=== PATIENT | female | born 1940 | race Caucasian/White ===

== ENCOUNTER 2017-11-09 19:47 | Emergency (ER) | payer MEDICARE, OTHER ==
[~2017-11-09] VITALS: Ht 154.9 cm; Wt 79.2 kg
[~2017-11-09 19:47] MED LIST: ALPR.5 PO; BELL1TAB PO; FURO1TAB62 PO; GAVICHW CHEW; MECL-62 PO; SUCR1TAB PO
[2017-11-09 19:59] VITALS: BP 151/85; PULSE 93; RESP 20; TEMP 98.2; O2SAT 99
[2017-11-09 23:33] VITALS: BP 165/83; PULSE 61; RESP 20; O2SAT 97
[2017-11-10 00:33] VITALS: BP 175/85; PULSE 72; RESP 18; O2SAT 96
[2017-11-10] MEDS ORDERED: PRED50 PO (00:44)
[2017-11-10] MEDS ORDERED: methylPREDNISolone SOD SUCC 125 MG/2 ML VIAL IV PUSH ONE (00:45)
[2017-11-10] MEDS ORDERED: FUROSEMIDE 40 MG/4 ML VIAL IV PUSH ONE (00:45)
--- NOTE | 2017-11-10 00:45 | PD ---
HPI Chief Complaint: Respiratory Symptoms Time Seen by Provider: 22:01 Travel History International Travel<30 days: No Contact w/Intl Traveler<30days: No Traveled to known affect area: No History of Present Illness HPI The patient is a 76-year-old female who has a history of emphysema and congestive heart failure. She states she is unable to take the prednisone that was prescribed to her because it is too many pills and she has gastroesophageal irritation from these pills. She states she can take 1 pill without any problem. She also states her congestive heart failure is acting up because she has swelling in her legs. She takes 20 mg of Lasix daily for this. She no longer smokes. She denies any fever or chest pain. She states she has decreased exercise tolerance for the past week. She denies any fever and has a minimal cough. PFSH Past Medical History Cardiovascular Problems: Yes (A-FIB) COPD: Yes (spot on lung non cancerous) Diminished Hearing: No Gastrointestinal Disorders: Yes (GASTROPERESIS) GERD: Yes Hiatal Hernia: Yes Hypertension: Yes Respiratory: Yes (EMPHYSEMA) Tetanus Vaccination: > 5 Years Influenza Vaccination: No ?: Not : 2 Para: 2 Past Surgical History Cholecystectomy: Yes Ear Surgery: Yes (cataract sx) Gynecologic Surgery: Yes (oophorecctomy) Other Surgery: Yes (angiogram) Social History Alcohol Use: Yes (occasional) Tobacco Use: No (QUIT 2009) Substance Use: No Allergies-Medications (Allergen,Severity, Reaction): Coded Allergies: Penicillins (Verified Allergy, Severe, Anaphylaxis, 11/09/17) latex (Verified Allergy, Unknown, rash, 11/09/17) Uncoded Allergies: cough medicine (Allergy, Severe, 08/27/17) palpations Reported Meds & Prescriptions Reported Meds & Active Scripts Active Meclizine (Meclizine HCl) 25 Mg Tab 25 Mg PO TID PRN Reported Gaviscon (Aluminum Hydroxide-Mag Trisil) 80-14.2 mg Chew 2 Tab CHEW TID PRN Maximum 16 tabs/24 hrs Xanax (Alprazolam) 0.5 Mg Tab 0.5 Mg PO DAILY Lasix (Furosemide) 20 Mg Tab 20 Mg PO DAILY Review of Systems Except as stated in HPI: all other systems reviewed are Neg Physical Exam Narrative GENERAL: The patient is alert, oriented 3 in no respiratory distress. Her vital signs show blood pressure 151/85 and oximetry 99% on room air. Heart rate is 93 and temperature 98.2. Respirations are 20. SKIN: Focused skin assessment warm/dry. No skin rash is noted. HEAD: Atraumatic. Normocephalic. EYES: Pupils equal and round. No scleral icterus. No injection or drainage. ENT: No nasal bleeding or discharge. Mucous membranes pink and moist. NECK: Trachea midline. No JVD. No neck vein distention is present. CARDIOVASCULAR: Regular rate and rhythm. No murmur appreciated. RESPIRATORY: No accessory muscle use. Clear to auscultation. Breath sounds equal bilaterally. Specifically, no wheezes or Rales are heard. GASTROINTESTINAL: Abdomen soft, non-tender, nondistended. Hepatic and splenic margins not palpable. MUSCULOSKELETAL: No obvious deformities. No clubbing. No cyanosis. +2 bilateral edema. NEUROLOGICAL: Awake and alert. No obvious cranial nerve deficits. Motor grossly within normal limits. Normal speech. PSYCHIATRIC: Appropriate mood and affect; insight and judgment normal. Data Data Last Documented VS Vital Signs Date Time Temp Pulse Resp B/P (MAP) Pulse Ox O2 Delivery O2 Flow Rate FiO2 11/09/17 23:33 61 20 99 Room Air 11/09/17 23:33 165/83 (110) 11/09/17 19:59 98.2 MDM Medical Decision Making Medical Screen Exam Complete: Yes Emergency Medical Condition: Yes Medical Record Reviewed: Yes Differential Diagnosis Congestive heart failure, emphysema, pneumonia-unlikely, bronchitis, Narrative Course The patient may have slight congestive heart failure. Her history is that when she has leg swelling it is her congestive heart failure causing the problems. Her lungs are completely clear. Diagnosis Primary Impression: Congestive heart failure Additional Impression: Emphysema lung Med/Other Pt SpecificInfo: Prescription(s) given Scripts Prednisone (Prednisone) 50 Mg Tab 50 MG PO DAILY for 5 Days, #5 TAB 0 Refills Prov: Tim Hong MD 11/10/17 Disposition: 01 DISCHARGE HOME Condition: Stable Tim Hong MD Nov 10, 2017 00:45
[2017-11-10 01:57] VITALS: BP 155/99
== END 2017-11-10 02:02 | disposition home or self-care (01) ==
LOC: PHED 19:47
DX: I50.9 Heart failure, unspecified (principal); J43.8 Other emphysema; I10 Essential (primary) hypertension; Z86.79 Personal history of other diseases of the circulatory system; Z87.19 Personal history of other diseases of the digestive system
CPT/HCPCS: 96374; 96375; 99284; J1940; J2930

== ENCOUNTER 2018-01-21 17:52 | Emergency (ER) | payer MEDICARE, OTHER ==
[~2018-01-21] VITALS: Ht 154.9 cm; Wt 81.0 kg
[~2018-01-21 17:52] MED LIST changes: -BELL1TAB PO; +PRED50 PO
[2018-01-21 18:14] VITALS: BP 150/85; PULSE 86; RESP 16; TEMP 97.9; O2SAT 96
[2018-01-21] MEDS ORDERED: ZPAK (20:50)
[2018-01-21 21:10] LABS: BILIRUBIN, URINE NEG (NEG); BLOOD, URINE NEG (NEG); GLUCOSE,URINE NEG (NEG); KETONE, URINE NEG (NEG); NITRITE,URINE NEG (NEG); URINE COLOR YELLOW (YELLW/STRAW); URINE LEUKOCYTE ESTERASE NEG (NEG)
[2018-01-21 21:20] LABS: CHLORIDE 105 MEQ/L (98-107); SODIUM (NA) 137 MEQ/L (136-145)
[2018-01-21 21:21] LABS: AUTOMATED NEUTROPHIL # 5.1 TH/MM3 (1.8-7.7); BASOPHIL # 0.1 TH/MM3 (0-0.2); BASOPHIL % 0.7 % (0.0-2.0); EOSINOPHIL # 0.1 TH/MM3 (0-0.4); EOSINOPHIL % 1.1 % (0.0-4.0); HEMATOCRIT 38.9 % (35.0-46.0); HEMOGLOBIN 13.3 GM/DL (11.6-15.3); LYMPH % 28.4 % (9.0-44.0); LYMPHOCYTE # 2.3 TH/MM3 (1.0-4.8); MEAN CELL VOLUME 90.5 FL (80.0-100.0); MEAN CORPUSCULAR HEMOGLOBIN 30.9 PG (27.0-34.0); MEAN CORPUSCULAR HGB CONC 34.1 % (32.0-36.0); MEAN PLATELET VOLUME 8.5 FL (7.0-11.0); MONO % 6.7 % (0.0-8.0); MONOCYTE # 0.6 TH/MM3 (0-0.9); NEUT % 63.1 % (16.0-70.0); PLATELET COUNT 187 TH/MM3 (150-450); RED CELL DISTRIBUTION WIDTH 11.7 % (11.6-17.2); WHITE BLOOD COUNT 8.2 TH/MM3 (4.0-11.0)
[2018-01-21 21:24] LABS: ALBUMIN 4.4 GM/DL (3.4-5.0); BICARBONATE 27.8 MEQ/L (21.0-32.0); CALCIUM 9.5 MG/DL (8.5-10.1); GLUCOSE,RANDOM 96 MG/DL (74-106)
[2018-01-21 21:25] LABS: BLOOD UREA NITROGEN 26 MG/DL (7-18); SQUAMOUS EPITHELIAL CELL URINE 0-5 /hpf (0-5)
[2018-01-21 21:27] LABS: ALT (GPT) 32 U/L (10-53); AST (GOT) 25 U/L (15-37)
[2018-01-21 21:28] LABS: GLOMERULAR FILTRATION RATE 40 ML/MIN (>89)
[2018-01-21 21:29] LABS: TOTAL BILIRUBIN ADULT 0.6 MG/DL (0.2-1.0); TOTAL PROTEIN 8.2 GM/DL (6.4-8.2)
[2018-01-21 21:30] LABS: ALKALINE PHOSPHATASE 104 U/L (45-117)
--- NOTE | 2018-01-21 21:39 | PD ---
HPI Chief Complaint: Pain: Acute or Chronic Time Seen by Provider: 20:50 Travel History International Travel<30 days: No Contact w/Intl Traveler<30days: No Traveled to known affect area: No History of Present Illness HPI 77-year-old female that presents to the ED for evaluation of muscle spasms to her hands and feet. Per patient she's had this since today. Per patient she no longer has this but she has a pain to her back that appears to be more constant per per patient is not severe and is 3 out of 10. Per patient he muscle spasm versus beer and then went away on her own. She denies any urinary or bowel movement issues. She denies any headache. No chest pain or shortness of breath. She does state that she gets spasms as well as pain whenever she gets dehydrated that she takes Lasix. She doesn't take any potassium way. Denies any falls or injuries. States that this off for some she's had pain this bad. Per patient the pain is 7 out of 10. Sharp. She no longer has it. Allergies to different medications. PFSH Past Medical History Hx Anticoagulant Therapy: No Cardiovascular Problems: Yes (CHOL, CHF, HTN) COPD: Yes (spot on lung non cancerous) Diabetes: No Diminished Hearing: No Gastrointestinal Disorders: Yes (GASTROPERESIS) GERD: Yes Hiatal Hernia: Yes Hypertension: Yes Respiratory: Yes (EMPHYSEMA) ?: Not : 2 Para: 2 Past Surgical History Cholecystectomy: Yes Ear Surgery: Yes (cataract sx) Gynecologic Surgery: Yes (oophorecctomy) Other Surgery: Yes (angiogram) Social History Alcohol Use: Yes (occasional) Tobacco Use: No (QUIT 2009) Substance Use: No Allergies-Medications (Allergen,Severity, Reaction): Coded Allergies: Penicillins (Verified Allergy, Severe, Anaphylaxis, 01/21/18) latex (Verified Allergy, Unknown, rash, 01/21/18) Uncoded Allergies: cough medicine (Allergy, Severe, 08/27/17) palpations Reported Meds & Prescriptions Reported Meds & Active Scripts Active Meclizine (Meclizine HCl) 25 Mg Tab 25 Mg PO TID PRN Reported [Zpak] Xanax (Alprazolam) 0.5 Mg Tab 0.5 Mg PO DAILY Lasix (Furosemide) 20 Mg Tab 20 Mg PO DAILY Review of Systems Except as stated in HPI: all other systems reviewed are Neg Physical Exam Narrative GENERAL: SKIN: Warm and dry. HEAD: Atraumatic. Normocephalic. EYES: Pupils equal and round. No scleral icterus. No injection or drainage. ENT: No nasal bleeding or discharge. Mucous membranes pink and moist. NECK: Trachea midline. No JVD. CARDIOVASCULAR: Regular rate and rhythm. No murmurs, S3, S4. RESPIRATORY: No accessory muscle use. Clear to auscultation. Breath sounds equal bilaterally. GASTROINTESTINAL: Abdomen soft, non-tender, nondistended. Hepatic and splenic margins not palpable. MUSCULOSKELETAL: Extremities without clubbing, cyanosis, or edema. No obvious deformities. Full range of motion of the upper and lower extremities bilaterally. 2+ pulses bilaterally. No lumbar, thoracic, cervical spine tenderness to palpation. Patient doesn't really have reproducible pain on the CVA area. NEUROLOGICAL: Awake and alert. No obvious cranial nerve deficits. Motor grossly within normal limits. Five out of 5 muscle strength in the arms and legs. Normal speech. PSYCHIATRIC: Appropriate mood and affect; insight and judgment normal. Data Data Last Documented VS Vital Signs Date Time Temp Pulse Resp B/P (MAP) Pulse Ox O2 Delivery O2 Flow Rate FiO2 01/21/18 18:14 97.9 86 16 150/85 (106) 96 Orders Orders Complete Blood Count With Diff (01/21/18 20:56) Comprehensive Metabolic Panel (01/21/18 20:56) Lipase (01/21/18 20:56) Urinalysis - C+S If Indicated (01/21/18 20:56) Iv Access Insert/Monitor (01/21/18 20:56) Sodium Chlor 0.9% 1000 Ml Inj (Ns 1000 M (01/21/18 22:00) Ed Discharge Order (01/21/18 21:57) Labs Laboratory Tests Test 01/21/18 21:01 White Blood Count 8.2 TH/MM3 Red Blood Count 4.30 MIL/MM3 Hemoglobin 13.3 GM/DL Hematocrit 38.9 % Mean Corpuscular Volume 90.5 FL Mean Corpuscular Hemoglobin 30.9 PG Mean Corpuscular Hemoglobin Concent 34.1 % Red Cell Distribution Width 11.7 % Platelet Count 187 TH/MM3 Mean Platelet Volume 8.5 FL Neutrophils (%) (Auto) 63.1 % Lymphocytes (%) (Auto) 28.4 % Monocytes (%) (Auto) 6.7 % Eosinophils (%) (Auto) 1.1 % Basophils (%) (Auto) 0.7 % Neutrophils # (Auto) 5.1 TH/MM3 Lymphocytes # (Auto) 2.3 TH/MM3 Monocytes # (Auto) 0.6 TH/MM3 Eosinophils # (Auto) 0.1 TH/MM3 Basophils # (Auto) 0.1 TH/MM3 CBC Comment DIFF FINAL Differential Comment Urine Color YELLOW Urine Turbidity CLEAR Urine pH 6.0 Urine Specific [place] LESS/EQUAL 1.005 Urine Protein NEG mg/dL Urine Glucose (UA) NEG mg/dL Urine Ketones NEG mg/dL Urine Occult Blood NEG Urine Nitrite NEG Urine Bilirubin NEG Urine Urobilinogen 0.2 MG/DL Urine Leukocyte Esterase NEG Urine Squamous Epithelial Cells 0-5 /hpf Microscopic Urinalysis Comment CULT NOT INDICATED Blood Urea Nitrogen 26 MG/DL Creatinine 1.30 MG/DL Random Glucose 96 MG/DL Total Protein 8.2 GM/DL Albumin 4.4 GM/DL Calcium Level 9.5 MG/DL Alkaline Phosphatase 104 U/L Aspartate Amino Transf (AST/SGOT) 25 U/L Alanine Aminotransferase (ALT/SGPT) 32 U/L Total Bilirubin 0.6 MG/DL Sodium Level 137 MEQ/L Potassium Level 3.7 MEQ/L Chloride Level 105 MEQ/L Carbon Dioxide Level 27.8 MEQ/L Anion Gap 4 MEQ/L Estimat Glomerular Filtration Rate 40 ML/MIN Lipase 217 U/L MDM Medical Decision Making Medical Screen Exam Complete: Yes Emergency Medical Condition: Yes Medical Record Reviewed: Yes Interpretation(s) CBC & BMP Diagram 01/21/18 21:01 Total Protein 8.2, Albumin 4.4, Calcium Level 9.5, Alkaline Phosphatase 104, Aspartate Amino Transf (AST/SGOT) 25, Alanine Aminotransferase (ALT/SGPT) 32, Total Bilirubin 0.6 UA negative Differential Diagnosis Muscle spasms versus pain versus neuropathy versus back pain versus CVA versus kidney injury versus electrolyte abnormality Narrative Course 77-year-old female that presents to the ED for evaluation of muscle spasms. Patient was properly examined and was found to have signs and symptoms consistent with appears to be possible electron tomography. Labs were ordered. Labs showed no sign of acute disease. Unclear etiology of the symptoms. Appears to be benign at this time as patient doesn't have any symptoms other than some lower back pain. She has good pulses everywhere. She is neurovascular intact. Case was discussed with my attending Dr Corona who agrees with discharge and wants patient to have NS bolus. Patient given 500 ml Bolus secondary to CHF history. At this time accommodations for patient to take Tylenol or Motrin for pain. Close follow-up with PCP. Drinking plenty of fluids. See ED worsening symptoms. Diagnosis Primary Impression: Spasms of the hands or feet Referrals: Compa Dobson MD,Shama VILLANUEVA Patient Instructions: General Instructions Additional Instructions: Motrin or tylenol for pain. Drink plenty of fluids. Follow up with fire prevention specialist. See ED if worsening symptoms. Med/Other Pt SpecificInfo: No Change to Meds Disposition: 01 DISCHARGE HOME Condition: Stable Quinten Mendoza Jan 21, 2018 21:39
[2018-01-21] MEDS ORDERED: SODIUM CHLOR 0.9% 1000 ML INJ 1,000 ML IV ONE (22:00)
== END 2018-01-21 22:29 | disposition home or self-care (01) ==
LOC: PHED 17:52 → PHEFT 22:29
DX: M62.838 Other muscle spasm (principal); I11.0 Hypertensive heart disease with heart failure; I50.9 Heart failure, unspecified; J44.9 Chronic obstructive pulmonary disease, unspecified; K21.9 Gastro-esophageal reflux disease without esophagitis; Z87.891 Personal history of nicotine dependence
CPT/HCPCS: 80053; 81001; 83690; 85025; 99284; J7030